=== PATIENT | female | born 1995 | race Caucasian/White ===

== ENCOUNTER 2019-04-29 13:18 | Inpatient (IN) ==
[2019-04-29] MEDS ORDERED: ONDANSETRON 4 MG TAB.RAPDIS PO PRN (13:27)
[2019-04-29] MEDS ORDERED: MISOPROSTOL 100 MCG TABLET VG PRN (13:27)
[2019-04-29] MEDS ORDERED: PENICILLIN G POTASSIUM 5 MILLIONUNT in DEXTROSE 5 % IN WATER 100 ML IV ONE ×2 (13:27)
[2019-04-29] MEDS: RINGER'S SOLUTION,LACTATED 1,000 ML IV ONE (13:56)
--- NOTE | 2019-04-29 14:48 | HP ---
Chief Complaint - Chief Complaint Date of Service: 04/29/19 Time of Service: 14:41 Chief Complaint: elective induction of labor History of Present Illness: 24 yo at 39 4/7 wks presents to L&D for elective induction of labor. This complicated by anemia, h/o HSV (no active lesions), obesity, and THC use in 1st trimester. Rh positive Rubella immune GBS positive Medical History (Last Reviewed 04/29/19 @ 14:45 by Souleymane Peoples DO) Anemia (Acute) Onset Date: 02/08/19 w/ HSV antigen DIF positive (Chronic) Onset Date: Unknown Influenza vaccine refused (Acute) Onset Date: Unknown Chlamydia Onset Date: ~2016 HSV-1 (herpes simplex virus 1) infection Onset Date: Unknown Lymphadenitis Onset Date: ~2012 Surgical History: Surgical History (Last Reviewed 04/29/19 @ 14:45 by Souleymane Peoples DO) [place] teeth removed Onset Date: Unknown Family History: Family History (Last Reviewed 04/29/19 @ 14:45 by Souleymane Peoples DO) Father Alive and well Grandfather Alive and well maternal & paternal Grandmother Alive and well maternal & paternal Mother Alive and well Social History: (Last Reviewed 04/29/19 @ 14:45 by Souleymane Peoples DO) Social History: detention: No Marital status: Single household members: none current occupational status: employed current occupation: [employer] Highest education level completed: high school graduate Sexually Active: Yes Service: No Tobacco: Smoking Status: Never smoker second hand exposure: No Alcohol: alcohol intake: never Substance Use: substance use type: does not use Dietary Habits: caffeine: Yes Exercise: Physical activity type: none Physical activity functional status: normal ROM and activity Review Of Systems (GEN) - Review of Systems Generalized/Overall Review: Present: No Symptoms Reported EENTM: Present: No Symptoms Reported Respiratory: Present: No Symptoms Reported Cardiac: Present: No Symptoms Reported Abdominal: Present: No Symptoms Reported Genitourinary: Present: No Symptoms Reported Musculoskeletal: Present: No Symptoms Reported Neurological: Present: No Symptoms Reported Skin: Present: No Symptoms Reported Allergies/Adverse Reactions: Allergies Allergy/AdvReac Type Severity Reaction Status Date / Time cefprozil [From Cefzil] Allergy Intermediate hives Verified 04/29/19 13:27 cephalexin Allergy Intermediate hives Verified 04/29/19 13:27 Home Medications: HOME MEDICATIONS prenat.vits,patricia,[id number] 1 tab PO DAILY 09/23/18 [Last Taken 04/29/19] ferrous sulfate 325 mg (65 mg iron) tablet 325 mg PO DAILY #30 tab 02/09/19 [Last Taken Unknown] valacyclovir 1 gram tablet 1,000 mg PO DAILY #30 tab 03/22/19 [Last Taken 04/28/19] Exam - Exam Vital Signs: Vital Signs - Last Taken Temp 36.5 C 04/29/19 13:39 Pulse 108 H 04/29/19 13:39 Resp 18 04/29/19 13:39 BP 137/67 04/29/19 13:39 Pulse Ox 999 H 04/29/19 13:39 Constitutional: Present: Alert, Oriented x3, Cooperative, No distress ENT Exam: Present: hearing grossly normal Breasts: Present: Exam deferred Respiratory: Present: lungs clear, no respiratory distress Cardiovascular/Chest: Present: regular rate, rhythm, no edema Abdomen: Present: soft, nontender, no rebound tenderness, other - gravid /Rectal: Present: Other - Cervix - Cl/25/-4 Extremity: Present: no pedal edema, no calf tenderness Skin Exam: Present: normal color, warm/dry, no cyanosis Lymphatic: Present: no adenopathy Appearance: Present: appropriate appearance, appropriate insight Eye contact: Present: cooperative, good eye contact Thoughts: Present: normal thought pattern, normal mood /affect Assessment/Plan - Assessment/Plan (1) Encounter for elective induction of labor Assessment: R/b/a to IOL discussed with patient. All questions answered. Admit for Cytotec induction of labor. IV PCN per GBS protocol. Epidural PRN. Pitocin augmentation PRN. Problem: Acute (2) Anemia Problem: Acute Qualifiers: Anemia type: iron deficiency Iron deficiency anemia type: inadequate dietary iron intake Qualified Code(s): D50.8 - Other iron deficiency anemias (3) HSV antigen DIF positive Problem: Chronic
[2019-04-29] MEDS: OXYTOCIN/DEXTROSE 5%-WATER 30 UNITS/500 ML BAG IV ONE (16:07)
[2019-04-29 16:42] LABS: Cocaine Ur Negative (NEGATIVE); Urine Barbiturate Negative (NEGATIVE); Urine Benzodiazepines Negative (NEGATIVE); Urine Opiates Negative (NEGATIVE); Urine PCP Negative (NEGATIVE); Urine THC Negative (NEGATIVE)
[2019-04-29] MEDS: PENICILLIN G POTASSIUM 2.5 MILLIONUNT in DEXTROSE 5 % IN WATER 100 ML IV SCH ×4 (19:54→21:53)
[2019-04-30] MEDS ORDERED: ACETAMINOPHEN 325 MG TABLET PO ONE (03:45)
[2019-04-30] MEDS: PENICILLIN G POTASSIUM 2.5 MILLIONUNT in DEXTROSE 5 % IN WATER 100 ML IV SCH ×8 (04:21→22:03)
--- NOTE | 2019-04-30 09:48 | PN ---
Progess Note - Interim Date: 04/30/19 Time: 09:44 Narrative: 04/30/19 09:44 Patient rating her contractions as 2-3 out of 10 Vital signs stable. Status post Cytotec x1 dose at 0100 today FHT: 140 baseline, reassuring contractions q 1-2 min Cervix: 40/-2 Impression: Intrauterine at 39-5/7 weeks, induction of labor, GBS carrier -status post 2 doses of penicillin. Plan: Pitocin augmentation if needed, epidural when desired, restart IV penicillin once in active labor.
[2019-04-30] MEDS: OXYTOCIN/DEXTROSE 5%-WATER 30 UNITS/500 ML BAG IV ONE (11:00)
[2019-04-30] MEDS: DEXTROSE 5%-LACTATED RINGERS 1,000 ML IV PRN (16:00)
[2019-04-30] MEDS ORDERED: ONDANSETRON HCL/PF 2 MG/ML VIAL IV PRN (21:12)
[2019-04-30] MEDS ORDERED: NALOXONE HCL 1 MG/1 ML SYRG IV PRN (21:12)
[2019-04-30] MEDS ORDERED: BUPIVACAINE HCL/PF 30 ML VIAL EP SCH (21:15)
[2019-04-30] MEDS: RINGER'S SOLUTION,LACTATED 1,000 ML IV ONE (21:40)
--- NOTE | 2019-04-30 22:16 | ANES ---
Anesthesia Pre Procedure Eval Vitals/Labs: Last Vital Signs Temp 36.4 C 04/30/19 22:06 Pulse 92 04/30/19 22:06 Resp 18 04/30/19 22:06 BP 138/67 04/30/19 22:06 Pulse Ox 100 04/30/19 22:06 HOME MEDICATIONS prenat.vits,patricia,[id number] 1 tab PO DAILY 09/23/18 [Last Taken 04/29/19] ferrous sulfate 325 mg (65 mg iron) tablet 325 mg PO DAILY #30 tab 02/09/19 [Last Taken Unknown] valacyclovir 1 gram tablet 1,000 mg PO DAILY #30 tab 03/22/19 [Last Taken 04/28/19] Allergies/Adverse Reactions: Allergies Allergy/AdvReac Type Severity Reaction Status Date / Time cefprozil [From Cefzil] Allergy Intermediate hives Verified 04/29/19 13:27 cephalexin Allergy Intermediate hives Verified 04/29/19 13:27 - Planned Procedure Planned Procedure: Labor wpidural Medication List Reviewed:: Yes Allergies Verified: Yes Medical History (Last Reviewed 04/30/19 @ 22:15 by Landon Valladares CRNA) Anemia (Acute) Onset Date: 02/08/19 w/ HSV antigen DIF positive (Chronic) Onset Date: Unknown Influenza vaccine refused (Acute) Onset Date: Unknown Chlamydia Onset Date: ~2016 HSV-1 (herpes simplex virus 1) infection Onset Date: Unknown Lymphadenitis Onset Date: ~2012 Surgical History (Last Reviewed 04/30/19 @ 22:15 by Landon Valladares CRNA) [place] teeth removed Onset Date: Unknown Family History (Last Reviewed 04/30/19 @ 22:15 by Landon Valladares CRNA) Father Alive and well Grandfather Alive and well maternal & paternal Grandmother Alive and well maternal & paternal Mother Alive and well - Anesthesia Assessment and Plan ASA Class: PS, II Anesthesia Type Plan: Epidural
--- NOTE | 2019-04-30 22:33 | ANES ---
Post Anesthesia Assessment - Vital Signs Vitals: Last Vital Signs Temp 37.1 C 04/30/19 22:31 Pulse 98 04/30/19 22:31 Resp 18 04/30/19 22:31 BP 139/68 04/30/19 22:31 Pulse Ox 100 04/30/19 22:31 Airway Patency: Normal - Mental Status Level Of Consciousness: Awake - N/V Assessment Nausea/Vomiting Presence: None Dehydration:: No
--- NOTE | 2019-04-30 22:33 | ANES ---
Anesthesia Procedure Note Procedure Note: ANESTHESIA PROCEDURE NOTE Date of Procedure: 04/30/2018 Time of procedure: 2214. Performed by: Landon Valladares CRNA Internal Medicine Specialist: None. Preprocedure diagnosis: Active labor. Post procedure diagnosis: Same. Procedure: Insertion of labor epidural. Indications: The patient is a 24-year-old female in active labor requesting labor epidural for pain management. Findings: See below. Details of the procedure: The patient was placed in a sitting position. DuraPrep as well as Betadine swabs X3 was applied to the patient's back. Patient was then draped in a sterile fashion. Lidocaine 1% was infiltrated to the skin and subcutaneous tissues at the level of the L3-4 interspace. The epidural space was identified using a 18-gauge Tuohy needle with vlou-af-[id number] technique. Epidural catheter was inserted to a depth of 12 centimeters at skin. Negative test dose was elicited using 3 mL of 1.5% preservative-free lidocaine plus epinephrine 1 200,000. The epidural catheter was then taped and secured in place. A loading dose of 8 mL of 0.25% preservative-free bupivacaine was administered to the epidural catheter after negative aspiration for blood and CSF. EBL: Minimal. Fluids: N/A. Specimen: N/A. Post procedure condition: The patient tolerated the procedure well. No complications were noted. Thank you for this consultation. Landon Valladares CRNA
[2019-04-30] MEDS: BUPIVACAINE HCL/0.9 % NACL/PF 250 ML EP PRN (22:45)
[2019-05-01] MEDS: PENICILLIN G POTASSIUM 2.5 MILLIONUNT in DEXTROSE 5 % IN WATER 100 ML IV SCH ×10 (01:27→17:31)
[2019-05-01] MEDS: DEXTROSE 5%-LACTATED RINGERS 1,000 ML IV PRN ×2 (02:10→17:00)
--- NOTE | 2019-05-01 09:47 | PN ---
Progess Note - Interim Date: 05/01/19 Time: 09:43 Narrative: 05/01/19 09:43 Patient comfortable with epidural Vital signs stable. Pitocin at 2 mu/min. FHT: 140 baseline, moderate variability with good accelerations and occasional late deceleration which appeared to be positional. Since admission and throughout last evening and this morning patient has had sporadic runs of late decelerations which resolved with position changes. Contractions q 2-3 min Cervix: 4/70 5/-1 per nurse, spontaneous rupture of membranes last night at 2130-clear. Impression: Intrauterine at 39-6/7 weeks. Induction of labor with slow progress. GBS positive-on IV penicillin per protocol. Plan: Continue present plan. Discussed risk, benefits, alternatives to section if nonreassuring tracing occurs again and does not resolve.
[2019-05-01] MEDS: BUPIVACAINE HCL/0.9 % NACL/PF 250 ML EP PRN (16:31)
[2019-05-01] MEDS ORDERED: RINGER'S SOLUTION,LACTATED 1,000 ML IV ONE (17:19)
[2019-05-01] MEDS ORDERED: OXYTOCIN 20 UNITS in RINGER'S SOLUTION,LACTATED 1,000 ML IV ONE (17:49)
[2019-05-01] MEDS ORDERED: GENTAMICIN SULFATE IV ONE ×2 (17:49)
[2019-05-01] MEDS ORDERED: WATER IV ONE ×2 (17:49)
[2019-05-01] MEDS ORDERED: DEXTROSE 5% IV ONE ×2 (17:49)
[2019-05-01] MEDS ORDERED: CLINDAMYCIN PHOSPHATE 900 MG in DEXTROSE 5 % IN WATER 100 ML IV ONE ×2 (17:49)
--- NOTE | 2019-05-01 17:59 | PN ---
Progess Note - Interim Date: 05/01/19 Time: 17:53 Narrative: 05/01/19 17:53 Patient comfortable with epidural Vital signs stable. Pitocin was at 4 milliunits/min but turned off due to recurrent late decelerations FHT: 150 baseline, recurrent late decelerations with contractions. Lates resolved with pit off. Contractions q 4-6 min when Pitocin was on, now none. Cervix: 5-6/90/-3 Impression: Intrauterine at 39 6/7 weeks with intolerance to labor. Intermittent decelerations now have become consistent when contractions are present. Plan: Risks, benefits, and alternatives to section discussed with patient and family. All questions answered. We will proceed with primary low transverse section due to intolerance to labor.
[2019-05-01] MEDS ORDERED: ONDANSETRON HCL/PF 2 MG/ML VIAL ONE (18:27)
[2019-05-01] MEDS ORDERED: BUPIVACAINE HCL/EPINEPHRINE 50 ML VIAL ONE (18:27)
[2019-05-01] MEDS ORDERED: LIDOCAINE HCL/EPINEPHRINE 20 ML VIAL ONE (18:27)
[2019-05-01] MEDS ORDERED: KETOROLAC TROMETHAMINE 30 MG/ML VIAL ONE (18:27)
[2019-05-01] MEDS ORDERED: NEOSTIGMINE METHYLSULFATE 1 MG/ML VIAL ONE (18:27)
[2019-05-01] MEDS ORDERED: GLYCOPYRROLATE 0.2 MG/ML VIAL ONE (18:27)
[2019-05-01] MEDS ORDERED: fentaNYL CITRATE/PF 50 MCG/ML AMPUL ONE (18:27)
[2019-05-01] MEDS ORDERED: SODIUM BICARBONATE 1 MEQ/ML SYRG ONE (18:31)
--- NOTE | 2019-05-01 18:33 | ANES ---
Anesthesia Pre Procedure Eval Vitals/Labs: Last Vital Signs Temp 37.1 C 04/30/19 22:31 Pulse 98 04/30/19 22:31 Resp 18 04/30/19 22:31 BP 139/68 04/30/19 22:31 Pulse Ox 100 04/30/19 22:31 HOME MEDICATIONS prenat.vits,patricia,[id number] 1 tab PO DAILY 09/23/18 [Last Taken 04/29/19] ferrous sulfate 325 mg (65 mg iron) tablet 325 mg PO DAILY #30 tab 02/09/19 [Last Taken Unknown] valacyclovir 1 gram tablet 1,000 mg PO DAILY #30 tab 03/22/19 [Last Taken 04/28/19] Allergies/Adverse Reactions: Allergies Allergy/AdvReac Type Severity Reaction Status Date / Time cefprozil [From Cefzil] Allergy Intermediate hives Verified 04/29/19 13:27 cephalexin Allergy Intermediate hives Verified 04/29/19 13:27 - Planned Procedure Planned Procedure: C/S Medication List Reviewed:: Yes Allergies Verified: Yes Medical History (Last Reviewed 05/01/19 @ 18:32 by Landon Valladares CRNA) Anemia (Acute) Onset Date: 02/08/19 w/ HSV antigen DIF positive (Chronic) Onset Date: Unknown Influenza vaccine refused (Acute) Onset Date: Unknown Chlamydia Onset Date: ~2016 HSV-1 (herpes simplex virus 1) infection Onset Date: Unknown Lymphadenitis Onset Date: ~2012 Surgical History (Last Reviewed 05/01/19 @ 18:32 by Landon Valladares CRNA) [place] teeth removed Onset Date: Unknown Family History (Last Reviewed 05/01/19 @ 18:32 by Landon Valladares CRNA) Father Alive and well Grandfather Alive and well maternal & paternal Grandmother Alive and well maternal & paternal Mother Alive and well - Family Anesthesia History Family History:: no untoward family reactions to anesthesia, no familial bleeding tendencies, no family history of clotting disorders, no family history of premature - Airway/Neck/Teeth Within Normal Limits:: Yes Teeth Condition: intact Mallampatti Score: 2 Thyromental (T-M) distance: > 6 cm Mandibulo Hyoid distance: > 3 cm - Respiratory Respiratory Physical: lungs clear Smoking Status: Never smoker Discussed smoking cessation including day of surgery: No Sleep Apnea currently treated: No Sleep Apnea by current assessment: No Discussed Risks/Treatment of YISSEL: No - Cardiovascular Tolerate Activity: Good Heart Sounds: S1 & S2, Regular - Anesthesia Assessment and Plan ASA Class: PS, II, E Anesthesia Type Plan: Block - Bilateral ultrasound guided TAP blocks for postop analgesia, Epidural
[2019-05-01] MEDS ORDERED: RINGER'S SOLUTION,LACTATED 1,000 ML IV PRN (19:14)
[2019-05-01] MEDS ORDERED: BUPIVACAINE HCL/EPINEPHRINE 50 ML VIAL IJ ONE (19:47)
--- NOTE | 2019-05-01 19:52 | OR ---
Operative Report - Dictated Report Narrative: Indication: 4-year-old 1 para 0 induced for trending macrosomia had intermittent late decelerations since admission which progressively worsened as labor progressed. Patient after 48 hours reached 5 to 6 cm dilation but continued to have recurrent late decelerations every time contractions became adequate. For this reason she underwent primary section. Status: Planned Pre Operative Diagnosis: 39 6/7-week intrauterine . intolerance to labor/nonreassuring tracing with contractions. Post Operative Diagnosis: Same. Procedure Preformed: Primary Low Transverse Section Surgeon: Armando Peoples DO Finisher Fine Diamond Dies: OR Staff Anesthesia: Epidural,TAP block Estimated Blood Loss: 500 mL Urine Output: 75 mL of clear urine Fluids Given: 800 mL of crystalloid Drains: Bryant to gravity Surgical Complications: None Specimens: Placenta to pathology Findings: Male born at 1855 on 05/01/2017 with Apgars 8 and 9, weighing 3809 g in cephalic presentation. Normal uterus, tubes, ovaries. Technique: The patient was taken to the operating room and placed in dorsal supine position with a left lateral tilt. Byrant catheter and SCDs were already in place. After adequate epidural anesthesia and 900 mg of clindamycin with 480 mg of gentamicin intravenously given preoperatively, the abdominal cavity was entered via a modified Fam-Mcmanus incision. Two rolled laps were placed in the pericolic gutters on either side of the uterus. A transverse incision was made in the lower uterine segment and extended laterally and upwardly with digital traction. Clear fluid was noted upon amniotomy. The infant was delivered easily. After approximately 30 seconds, the cord was clamped and cut and infant was handed off to awaiting market intelligence consultant. The placenta was allowed to deliver spontaneously. The uterus was cleared of clot and debris. Uterine incision was closed with 0 Vicryl using a running stitch. A second imbricating layer was placed. Excellent hemostasis was noted. Rolled laps were removed from the abdominal cavitiy. The peritoneum was closed with a running 3-0 Monocryl. The same suture was used to approximate the rectus and pyramidalis muscles. The fascia was closed with a running 0 Vicryl. The subcutaneous layer was closed with a running 3-0 Monocryl. The same suture was used to approximate the subdermal layer. The skin was closed with a running 4-0 Monocryl and Dermabond. Sponge, lap, needle, and instrument count were correct x 2. Disposition: The patient was transferred to post anesthesia care unit in good condition History for MU History for MU Definition: * The number of deliveries resulting in a live the patient experienced prior to current hospitalization * The previous delivery of live twins or any live multiple gestation is considered one live event. *If primagravida or nulliparous is documented select zero for the number of previous live births. Live Events: Live Events: 0
[2019-05-01] MEDS ORDERED: SENNOSIDES 8.6 MG TABLET PO PRN (19:55)
[2019-05-01] MEDS ORDERED: SIMETHICONE 80 MG TAB.CHEW PO PRN (19:55)
[2019-05-01] MEDS ORDERED: IBUPROFEN 800 MG TABLET PO PRN (19:55)
[2019-05-01] MEDS ORDERED: ONDANSETRON HCL/PF 2 MG/ML VIAL IV PRN (19:55)
[2019-05-01] MEDS ORDERED: BISACODYL 10 MG SUPP.RECT RC PRN (19:55)
--- NOTE | 2019-05-01 20:02 | ANES ---
Post Anesthesia Discharge - Transfer of Care Transfer of Care handoff given to nurse: Yes - Discharge from PACU Discharge from PACU when meets criteria: Yes - Discharge to ASU Discharge to ASU-no complications/pt stable: Yes
--- NOTE | 2019-05-01 20:06 | ANES ---
Anesthesia Procedure Note Procedure Note: ANESTHESIA PROCEDURE NOTE Date of Procedure: 05/01/2019 Time of procedure: 1944. Performed by: Landon Valladares CRNA Fine Patcher: None. Preprocedure diagnosis: section. Post procedure diagnosis: Same. Procedure: Bilateral ultrasound-guided transversus abdominis plane block for postop analgesia. Indications: The patient is a 24-year-old female post section. Findings: See below. Details of the procedure: ChloraPrep was used on the patient's abdomen and the procedure was performed under sterile technique. The right abdominal fascial layer between the internal oblique muscle and the transversus abdominis muscles was identified under ultrasound guidance. A 21-gauge 4 inch block needle was inserted under ultrasound guidance to the target fascial plane. 15 mL's of 0.25% bupivacaine plus epinephrine 1:200,000 was injected after negative aspiration for blood. The needle was removed intact and the procedure was then repeated at the left side. No complications were noted. The images were retained in the hospital medical database. EBL: Minimal. Fluids: N/A. Specimen: N/A. Post procedure condition: The patient tolerated the procedure well. No complications were noted. Thank you for this consultation. Landon Valladares CRNA
--- NOTE | 2019-05-01 20:06 | ANES ---
Post Anesthesia Assessment - Vital Signs Vitals: Last Vital Signs Temp 37.1 C 05/01/19 20:00 Pulse 100 05/01/19 20:00 Resp 20 05/01/19 20:00 BP 120/42 05/01/19 20:00 Pulse Ox 100 05/01/19 20:00 Airway Patency: Normal - Mental Status Level Of Consciousness: Awake - Pain Level Pain Score: 0 - N/V Assessment Nausea/Vomiting Presence: None Dehydration:: No
[2019-05-01] MEDS: DOCUSATE SODIUM 100 MG CAPSULE PO SCH (20:51)
[2019-05-01] MEDS: oxyCODONE HCL/ACETAMINOPHEN 1 TAB TABLET PO PRN (20:55)
[2019-05-01] MEDS: IBUPROFEN 800 MG TABLET PO PRN (20:55)
[2019-05-01] MEDS ORDERED: oxyCODONE HCL/ACETAMINOPHEN 1 TAB TABLET PO ONE (23:56)
[2019-05-02] MEDS: IBUPROFEN 800 MG TABLET PO PRN ×3 (03:54→20:05)
[2019-05-02] MEDS: ENOXAPARIN SODIUM 40 MG/0.4 ML SYRG SC SCH (05:17)
--- NOTE | 2019-05-02 08:41 | PN ---
Subjective - Date and Time Seen Date: 05/02/19 Time: 08:40 Objective - Vitals Vitals: Last Vital Signs Temp 36.4 C 05/02/19 06:47 Pulse 67 05/02/19 06:47 Resp 16 05/02/19 06:47 BP 119/57 05/02/19 06:47 Pulse Ox 97 05/02/19 06:47 Patient denies complaints. Tolerating regular diet. Ambulating without difficulty. Pain well controlled. Lochia wnl. Abdomen - soft, appropriately tender Incision -clean, dry, intact uterus - firm, at umbilicus -1 no calf tenderness Impression: Post op day #1 s/p primary section. Plan: Continue routine post-operative/ care Cauti Physician Documentation - Urinary Catheter Management Urethral (Bryant) Date of Insertion: 04/30/19 Time of Insertion: 23:00 Assessment/Plan - Problems/Diagnosis (1) Encounter for elective induction of labor Problem: Acute (2) Anemia Problem: Acute Qualifiers: Anemia type: iron deficiency Iron deficiency anemia type: inadequate dietary iron intake Qualified Code(s): D50.8 - Other iron deficiency anemias (3) HSV antigen DIF positive Problem: Chronic
[2019-05-02] MEDS: DOCUSATE SODIUM 100 MG CAPSULE PO SCH ×2 (09:17→20:05)
[2019-05-02] MEDS: FERROUS SULFATE 325 MG TABLET PO SCH (09:17)
[2019-05-02] MEDS: oxyCODONE HCL/ACETAMINOPHEN 1 TAB TABLET PO PRN ×3 (09:17→20:04)
[2019-05-02] MEDS: PRENATAL VITS96/IRON FUM/FOLIC 1 TAB TABLET PO SCH (09:17)
[2019-05-03] MEDS: IBUPROFEN 800 MG TABLET PO PRN ×3 (04:24→20:44)
[2019-05-03] MEDS: oxyCODONE HCL/ACETAMINOPHEN 1 TAB TABLET PO PRN ×3 (04:24→20:43)
[2019-05-03] MEDS: ENOXAPARIN SODIUM 40 MG/0.4 ML SYRG SC SCH (05:14)
--- NOTE | 2019-05-03 07:23 | PN ---
Subjective - Date and Time Seen Date: 05/03/19 Time: 07:23 Objective - Vitals Vitals: Last Vital Signs Temp 36.7 C 05/03/19 06:57 Pulse 81 05/03/19 06:57 Resp 16 05/03/19 06:57 BP 128/89 05/03/19 06:57 Pulse Ox 99 05/03/19 06:57 Patient denies complaints. Ambulating well. Tolerating regular diet. Pain well controlled. Breast-feeding Lochia wnl. Abdomen - soft, appropriately tender Incision -clean, dry, intact uterus - firm, at umbilicus -2 no calf tenderness Impression: Post op day #2 s/p primary section. Plan: Continue routine post-operative/ care Cauti Physician Documentation - Urinary Catheter Management Urethral (Bryant) Date of Insertion: 04/30/19 Time of Insertion: 23:00 Assessment/Plan - Problems/Diagnosis (1) Encounter for elective induction of labor Problem: Acute (2) Anemia Problem: Acute Qualifiers: Anemia type: iron deficiency Iron deficiency anemia type: inadequate dietary iron intake Qualified Code(s): D50.8 - Other iron deficiency anemias (3) HSV antigen DIF positive Problem: Chronic
[2019-05-03] MEDS: DOCUSATE SODIUM 100 MG CAPSULE PO SCH ×2 (12:08→21:55)
[2019-05-03] MEDS: FERROUS SULFATE 325 MG TABLET PO SCH (12:08)
[2019-05-03] MEDS: PRENATAL VITS96/IRON FUM/FOLIC 1 TAB TABLET PO SCH (12:09)
[2019-05-04] MEDS: oxyCODONE HCL/ACETAMINOPHEN 1 TAB TABLET PO PRN ×3 (01:10→11:43)
[2019-05-04] MEDS: IBUPROFEN 800 MG TABLET PO PRN ×2 (03:22→11:42)
[2019-05-04] MEDS: ENOXAPARIN SODIUM 40 MG/0.4 ML SYRG SC SCH (05:05)
[2019-05-04] MEDS: DOCUSATE SODIUM 100 MG CAPSULE PO SCH (07:59)
[2019-05-04] MEDS: PRENATAL VITS96/IRON FUM/FOLIC 1 TAB TABLET PO SCH (07:59)
[2019-05-04] MEDS: FERROUS SULFATE 325 MG TABLET PO SCH (07:59)
[2019-05-04 08:19] VITALS: BP 122/60
--- NOTE | 2019-05-04 12:43 | PN ---
Subjective - Date and Time Seen Date: 05/04/19 Time: 12:43 Objective - Vitals Vitals: Last Vital Signs Temp 36.9 C 05/04/19 08:18 Pulse 99 05/04/19 08:18 Resp 16 05/04/19 08:18 BP 122/60 05/04/19 08:18 Pulse Ox 99 05/04/19 08:18 Patient denies complaints. Ambulating without difficulty. Tolerating regular diet. Pain well controlled. Lochia wnl. Abdomen - soft, appropriately tender Incision -clean, dry, intact uterus - firm, at umbilicus -3 no calf tenderness Impression: Post op day #3 s/p primary section. Obesity. Plan: Routine discharge instructions Cauti Physician Documentation - Urinary Catheter Management Urethral (Bryant) Date of Insertion: 04/30/19 Time of Insertion: 23:00 Assessment/Plan - Problems/Diagnosis (1) Encounter for elective induction of labor Problem: Acute (2) Anemia Problem: Acute Qualifiers: Anemia type: iron deficiency Iron deficiency anemia type: inadequate dieta ry iron intake Qualified Code(s): D50.8 - Other iron deficiency anemias (3) HSV antigen DIF positive Problem: Chronic
== END 2019-05-04 14:25 | disposition home or self-care (01) | DRG 788 ==
LOC: OB 13:18
PROVIDERS: ADMIT Obstetrics & Gynecology; ATTEND Obstetrics & Gynecology
CPT/HCPCS: 59025; 80307; 88307; J2405